=== PATIENT | male | born 1980 | race Caucasian/White ===

== ENCOUNTER 2016-06-07 09:35 | Emergency (ER) | payer OTHER ==
[2016-06-07] MEDS ORDERED: ASPIRIN 81 MG TABLET, CHEWABLE PO ONE (09:56)
[2016-06-07 10:29] LABS: ABSOLUTE EOSINOPHILS # (AUTO) 0.1 10^3/uL (0.0-0.6); ABSOLUTE LYMPHOCYTES (AUTO) 1.2 10^3/uL (0.5-4.7); ABSOLUTE MONOCYTES (AUTO) 0.4 10^3/uL (0.1-1.4); ABSOLUTE NEUT (AUTO) 3.5 10^3/uL (1.7-8.2); BASOPHILS % (AUTO) 0.4 % (0-2); HEMATOCRIT 44.3 % (37.9-51.0); HEMOGLOBIN 15.2 g/dL (13.5-17.0); HGB HCT DIFFERENCE 1.3; LYMPHOCYTES % (AUTO) 23.4 % (13-45); MEAN CORPUSCULAR HEMOGLOBIN 31.1 pg (27.0-33.4); MEAN CORPUSCULAR HGB CONC 34.4 g/dL (32.0-36.0); MEAN CORPUSCULAR VOLUME 90 fl (80-97); MONOCYTES % (AUTO) 8.3 % (3-13); RED BLOOD COUNT 4.91 10^6/uL (4.35-5.55); SEGMENTED NEUTROPHILS % (AUTO) 66.9 % (42-78); WHITE BLOOD COUNT 5.2 10^3/uL (4.0-10.5)
[2016-06-07 10:43] LABS: PROTHROMBIN TIME 13.7 SEC (11.4-15.4)
[2016-06-07 10:52] LABS: ALANINE AMINOTRANSFERASE 39 U/L (21-72); ALBUMIN 4.6 g/dL (3.5-5.0); ALKALINE PHOSPHATASE 79 U/L (38-126); ANION GAP 16 (5-19); ASPARTATE AMINO TRANSFERASE 36 U/L (17-59); BILIRUBIN,DIRECT 0.2 mg/dL (0.0-0.4); BILIRUBIN,TOTAL 2.6 mg/dL (0.2-1.3); BLOOD UREA NITROGEN 18 mg/dL (7-20); CALCIUM 9.9 mg/dL (8.4-10.2); CARBON DIOXIDE 19 mmol/L (22-30); CHLORIDE 111 mmol/L (98-107); CREATINE KINASE 135 U/L (55-170); CREATININE RESULT 1.13 mg/dL (0.52-1.25); GLUCOSE 86 mg/dL (75-110); MAGNESIUM 2.2 mg/dL (1.6-2.3); POTASSIUM 4.5 mmol/L (3.6-5.0); SODIUM 146.1 mmol/L (137-145); TOTAL PROTEIN 7.1 g/dL (6.3-8.2)
[2016-06-07 11:04] LABS: CREATINE KINASE MB 1.38 ng/mL (<4.55)
[2016-06-07 11:05] LABS: TROPONIN I < 0.012 ng/mL
[2016-06-07 11:34] LABS: APPEARANCE,URINE CLEAR; BILIRUBIN,URINE NEGATIVE (NEGATIVE); GLUCOSE, URINE NEGATIVE (NEGATIVE); KETONES,URINE NEGATIVE (NEGATIVE); LEUKOCYTE ESTERASE,URINE NEGATIVE (NEGATIVE); NITRITE,URINE NEGATIVE (NEGATIVE); PROTEIN,URINE NEGATIVE (NEGATIVE); URINE SPECIFIC GRAVITY 1.003; UROBILINOGEN,URINE NEGATIVE mg/dL (<2.0)
[2016-06-07 11:49] LABS: URINE BARBITURATES SCREEN NEGATIVE; URINE METHADONE SCREEN NEGATIVE; URINE OPIATES LOW NEGATIVE; URINE PHENCYCLIDINE SCREEN NEGATIVE
--- NOTE | 2016-06-07 14:19 | ER Document Report ---
ED General - General Chief Complaint: Dizziness Stated Complaint: WEAKNESS TRAVEL OUTSIDE OF THE [place] IN LAST 30 DAYS: No - HPI Patient complains to provider of: week dizzy short of breath Notes: Patient coming in for weakness dizzy Jay short of breath. Patient works at [employer] patient had an episode of possible near syncope. Patient also had recent surgery approximately 3-4 months is knee. Patient otherwise denies any past medical history. Denies any trauma. Patient does admit to having increased thirst and increased urination over the last week week and half. Patient denies any recent travel denies any past medical history. Patient denies smoking alcohol or drugs. - Related Data Allergies/Adverse Reactions: No Known Allergies Allergy (Verified 06/07/16 09:57) Past Medical History - Social History Smoking Status: Unknown if Ever Smoked Chew tobacco use (# tins/day): No Frequency of alcohol use: None Drug Abuse: None Family History: Reviewed & Not Pertinent - Past Medical History Cardiac Medical History: Denies: Hx Coronary Artery Disease, Hx Heart Attack, Hx Hypertension Pulmonary Medical History: Denies: Hx Asthma, Hx Bronchitis, Hx COPD, Hx Pneumonia Neurological Medical History: Denies: Hx Cerebrovascular Accident, Hx Seizures Musculoskeltal Medical History: Denies Hx Arthritis - Immunizations Hx Diphtheria, Pertussis, Tetanus Vaccination: Yes Review of Systems - Review of Systems Constitutional: Other - Week dizziness short of breath EENT: No symptoms reported Cardiovascular: Syncope - Near-syncope Respiratory: No symptoms reported Gastrointestinal: No symptoms reported Genitourinary: No symptoms reported Male Genitourinary: No symptoms reported Musculoskeletal: No symptoms reported Skin: No symptoms reported Hematologic/Lymphatic: No symptoms reported Neurological/Psychological: No symptoms reported -: Yes All other systems reviewed and negative Physical Exam - Vital signs Vitals: Pulse Ox 98 06/07/16 09:37 Interpretation: Normal - General General appearance: Appears well, Alert - HEENT Head: Normocephalic, Atraumatic Eyes: Normal Pupils: PERRL - Respiratory Respiratory status: No respiratory distress Chest status: Nontender Breath sounds: Normal Chest palpation: Normal - Cardiovascular Rhythm: Regular Heart sounds: Normal auscultation Murmur: No - Abdominal Inspection: Normal Distension: No distension Bowel sounds: Normal Tenderness: Nontender Organomegaly: No organomegaly - Back Back: Normal, Nontender - Extremities General upper extremity: Normal inspection, Nontender, Normal color, Normal ROM , Normal temperature General lower extremity: Normal inspection, Nontender, Normal color, Normal ROM , Normal temperature, Normal weight bearing. No: Gt's sign - Neurological Neuro grossly intact: Yes Cognition: Normal Orientation: AAOx4 [place] Coma Scale Eye Opening: Spontaneous [place] Coma Scale Verbal: Oriented [place] Coma Scale Motor: Obeys Commands [place] Coma Scale Total: 15 Speech: Normal Motor strength normal: LUE, RUE, LLE, RLE Sensory: Normal - Psychological Associated symptoms: Normal affect, Normal mood - Skin Skin Temperature: Warm Skin Moisture: Dry Skin Color: Normal Course - Re-evaluation Re-evalutation: 06/07/16 15:02 Patient continues to drink water here in the ER. Patient's sodium slightly elevated surmise muscles are normal. Patient's urine osmolality however is very dilute. Did discuss with the hospitalist and senior environmental engineer on-call Dr. Beal and Dr. De Jesus grade 1 likely possibly diabetes insipidus however at this time no signs or symptoms are warranted admission to the hospital. Discussed patient's findings with family and patient at bedside. Recommend patient follow -up withEP Dr. Marsh. Lupus call Dr. Marsh however there is no return phone call. Patient also for his dyspnea underwent a CTA. CTA was negative. Unclear etiology the patient's dyspnea. Patient was encouraged follow-up a states understanding will be discharged home - Vital Signs Vital signs: Temp Pulse Resp BP Pulse Ox 66 17 120/72 100 06/07/16 10:23 06/07/16 11:01 06/07/16 11:00 06/07/16 11:01 - Laboratory Result Diagrams: 06/07/16 09:50 06/07/16 09:50 Laboratory results interpreted by me: 06/07/16 06/07/16 09:50 09:50 Sodium 146.1 H Chloride 111 H Carbon Dioxide 19 L Total Bilirubin 2.6 H Urine Osmolality 147 L Discharge - Discharge Clinical Impression: Near syncope Dyspnea Qualifiers: Dyspnea type: unspecified Qualified Code(s): R06.00 - Dyspnea, unspecified Condition: Good Disposition: HOME, SELF-CARE Instructions: Near Syncopal Episode ([facility]) Additional Instructions: Your EKG CT scan of your chest and laboratory did not show any clear etiology for your episode today or your symptoms today. Please make sure he continued to drink plenty of water and avoid any strenuous activity return to the ER if symptoms worsen Your labwork does point to possible diabetes insipidus. This will be a condition that your primary care physician and possible local endocrinology will need to follow-up. Further information is provided Forms: Return to Work Referrals: RADHA MARSH DO [Primary Care Provider] - Follow up in 3-5 days
[2016-06-07 15:18] VITALS: BP 123/96
--- NOTE | 2016-06-07 19:39 | EKG REPORT ---
SEVERITY:- BORDERLINE ECG - SINUS RHYTHM BORDERLINE T ABNORMALITIES, ANT-LAT LEADS : Confirmed by: Chino Mares 07-Jun-2016 19:38:27
--- NOTE | 2016-06-07 19:39 | EKG REPORT ---
SEVERITY:- ABNORMAL ECG - SINUS RHYTHM NONSPECIFIC T ABNORMALITIES, ANT-LAT LEADS BORDERLINE PROLONGED QT INTERVAL : Confirmed by: Chino Mares 07-Jun-2016 19:38:33
== END 2016-06-07 14:29 | disposition home or self-care (01) ==
LOC: ER 09:35
DX: R55 Syncope and collapse (principal); R53.1 Weakness; R06.02 Shortness of breath; Z98.890 Other specified postprocedural states; R63.1 Polydipsia; R35.8 Other polyuria
CPT/HCPCS: 36415; 71275; 80053; 80307; 81001; 82550; 82553; 82962; 83735; 83930; 83935; 84484; 85025; 85610; 93005; 93010; 99285

== ENCOUNTER 2016-07-29 00:19 | Emergency (ER) | payer OTHER ==
[2016-07-29] MEDS ORDERED: DIPH/PERTUSS(ACELL)/TETANUS VAC/PF 0.5 ML SYR (>=10YO) IM ONE (00:26)
[2016-07-29] MEDS ORDERED: IBUPROFEN 600 MG TABLET PO ONE (00:26)
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
[2016-07-29 01:57] VITALS: BP 119/71
== END 2016-07-29 01:57 | disposition home or self-care (01) ==
LOC: ER 00:19
DX: S09.93XA Unspecified injury of face, initial encounter (principal); R22.0 Localized swelling, mass and lump, head; M25.532 Pain in left wrist; Y04.2XXA Assault by strike against or bumped into by another person, initial encounter
CPT/HCPCS: 70160; 90471; 90715; 99283